=== PATIENT | male | born 1970 | race Caucasian/White ===

== ENCOUNTER 2019-05-27 11:21 | Emergency (ER) | payer BC ==
[~2019-05-27] VITALS: Ht 190.5 cm; Wt 97.7 kg
[2019-05-27 11:32] VITALS: Ht 190.5 cm; Wt 97.7 kg
[2019-05-27 12:07] LABS: BASOPHILS 0.3 % (0-2); EOSINOPHILS 3.9 % (0-7); HEMATOCRIT 39.9 % (42.0-54.0); HEMOGLOBIN 13.5 g/dL (13.5-17.5); IMMATURE GRANULOCYTES 0.4 % (0-5); LYMPHOCYTES 22.7 % (15-50); MCH 22.1 pg (26.0-34.0); MCHC 33.8 g/dL (31.0-37.0); MCV 65.3 fL (80.0-100.0); MONOCYTES 7.3 % (2-11); NEUTROPHILS 65.4 % (40-80); PLATELET COUNT 148 10x3/uL (130-400); RBC 6.11 10x6/uL (4.20-6.10); RDW 15.7 % (11.5-14.5)
[2019-05-27 12:15] LABS: INR 1.08 (0.85-1.17); PROTIME 13.5 SECONDS (11.6-15.0)
[2019-05-27 12:25] LABS: ALBUMIN 3.7 g/dL (3.4-5.0); ALKALINE PHOSPHATASE 60 U/L (46-116); ALT (SGPT) 35 U/L (10-68); BILIRUBIN - TOTAL 0.87 mg/dL (0.2-1.3); CALC OSMOLALITY 280 mosm/kg (275-300); CALCIUM 8.8 mg/dL (8.5-10.1); CARBON DIOXIDE 28.4 mmol/L (21.0-32.0); CHLORIDE - SERUM 106 mmol/L (98-107); CREATININE - SERUM 1.2 mg/dL (0.6-1.3); GLUCOSE 97 mg/dL (74-106); POTASSIUM - SERUM 4.4 mmol/L (3.5-5.1); PROTEIN - SERUM 6.8 g/dL (6.4-8.2); SODIUM 141 mmol/L (136-145); UREA NITROGEN 13 mg/dL (7-18); eGFR NON AFRICAN AMERICAN 68 mL/min (90-120)
[2019-05-27 12:30] LABS: TROPONIN-I < 0.017 ng/mL (0.000-0.060)
[2019-05-27 13:24] LABS: APPEARANCE CLEAR (CLEAR); BILIRUBIN NEGATIVE (NEGATIVE); COLOR YELLOW (YELLOW); GLUCOSE NEGATIVE (NEGATIVE); KETONE NEGATIVE (NEGATIVE); NITRITE NEGATIVE (NEGATIVE); PROTEIN NEGATIVE (NEGATIVE); UROBILINOGEN NORMAL (NORMAL)
[2019-05-27 14:14] VITALS: BP 122/84
== END 2019-05-27 14:15 | disposition home or self-care (01) ==
LOC: D.ER 11:21
PROVIDERS: Family Medicine
DX: R55 Syncope and collapse (principal)

== ENCOUNTER → 2019-05-27 14:40 | Outpatient (CLI) | payer BC ==
[2019-05-27 11:32] VITALS: BMI 26.9
== END | disposition home or self-care (01) ==
LOC: D.MRI 14:40
PROVIDERS: ATTEND Family Medicine
DX: G45.9 Transient cerebral ischemic attack, unspecified (principal)